=== PATIENT | male | born 1965 | race Caucasian/White ===

== ENCOUNTER → 2024-01-14 10:44 | Outpatient (REF) | payer BC, OTHER, SELFPAY | LOC: RAD 10:44 | PROVIDERS: ATTENDING PHYSICIAN Nurse Practitioner Family | DX: M25.551 Pain in right hip (principal) | CPT/HCPCS: 73502; 73552 ==

== ENCOUNTER → 2024-03-22 11:13 | Outpatient (REF) | payer BC, OTHER, SELFPAY | LOC: PAVMRI 11:13 | PROVIDERS: ATTENDING PHYSICIAN Nurse Practitioner Family | DX: M25.551 Pain in right hip (principal); M54.50 Low back pain, unspecified | CPT/HCPCS: 72158; A9575 ==

== ENCOUNTER → 2024-03-23 11:53 | Outpatient (REF) | payer BC, OTHER, SELFPAY | LOC: PAVMRI 11:53 | PROVIDERS: ATTENDING PHYSICIAN Nurse Practitioner Family | DX: M25.551 Pain in right hip (principal); M54.50 Low back pain, unspecified | CPT/HCPCS: 72197; A9575 ==

== ENCOUNTER → 2024-12-11 12:57 | Outpatient (REF) | payer BC, OTHER, SELFPAY | LOC: MRI 3T 12:57 | PROVIDERS: ATTENDING PHYSICIAN Physician Assistant Surgical; FAMILY PHYSICIAN Nurse Practitioner Family | DX: M25.511 Pain in right shoulder (principal) | CPT/HCPCS: 23350; 73040; 73222 ==

== ENCOUNTER 2025-01-03 06:13 | Day surgery (SDC) | payer BC, OTHER, SELFPAY ==
[2024-12-12 09:09] LABS: Hematocrit 42.7 % (39.0-52.0); Hemoglobin 14.5 g/dL (13.0-18.0); Mean Corp Hgb Conc. 34.0 g/dL (33.0-37.0); Mean Corpuscular Volume 91.2 fL (80.0-94.0); Nucleated Red Blood Cells % 0 % (-); Platelet Count 219 10^3/uL (130-400); Red Cell Dist. Width 12.3 % (11.5-14.5)
[2024-12-12 09:30] LABS: Blood Urea Nitrogen 19 mg/dl (9-20); Calcium 9.5 mg/dl (8.4-10.2); Carbon Dioxide 32 mmol/L (22-30); Chloride 103 mmol/L (98-107); Glucose 88 mg/dl (70-99); Potassium 4.8 mmol/L (3.5-5.1); Sodium 138 mmol/L (135-145); eGFR > 60.00
[2024-12-12 14:03] VITALS: BMI 24.2
[2025-01-03] MEDS: TYLENOL 1000 MG PO (13:21)
[2025-01-03] MEDS: NORMOSOL-R/PLASMALYTE-A 1000 IV (13:39)
[2025-01-03] MEDS: EMEND 40 MG PO (14:02)
[2025-01-03 14:52] VITALS: BP 156/84; BMI 24.2
[2025-01-03 17:35] VITALS: BP 150/99; BP 156/84
[2025-01-03 17:50] VITALS: BP 158/99
[2025-01-03 18:05] VITALS: BP 146/92; BP 164/91
[2025-01-03 18:20] VITALS: BP 149/93
[2025-01-03 18:40] VITALS: BP 141/86
== END 2025-01-03 18:57 | disposition home or self-care (01) ==
LOC: SDS 06:13
PROVIDERS: ATTENDING PHYSICIAN Orthopaedic Surgery Hand Surgery
DX: S46.012A Strain of muscle(s) and tendon(s) of the rotator cuff of left shoulder, initial encounter (principal); X58.XXXA Exposure to other specified factors, initial encounter
CPT/HCPCS: 29827; 80048; 85025; 93005; C1713; C1776